=== PATIENT | female | born 1965 | race Two or more races ===

== ENCOUNTER 2019-01-12 09:05 | Day surgery (SDC) | payer OTHER ==
[2019-01-08 12:08] LABS: Basophils # (auto) 0.1 uL; Basophils % (auto) 0.8 % (0.0-2.0); Eosinophils # (auto) 0.1 uL; Eosinophils % (auto) 2.4 % (0.0-7.0); Hematocrit 41.6 % (36.0-46.0); Hemoglobin 14.6 g/dL (12.2-16.2); Lymphocytes # (auto) 1.9 uL; Lymphocytes % (auto) 30.4 % (10.0-50.0); Mean Corpuscular Hemoglobin 29.9 pg (28.0-32.0); Mean Corpuscular Volume 85.3 fL (80.0-100.0); Monocytes # (auto) 0.5 uL; Monocytes % (auto) 7.9 % (0.0-12.0); Neutrophils # (auto) 3.6 uL; Neutrophils % (auto) 58.5 % (37.0-80.0); Nucleated Red Blood Cells % 0.1 %; Platelet Count (auto) 221 10^3/uL (140-450); Red Blood Cells 4.88 10^6/uL (4.0-5.20); Red Cell Distribution Width 13.7 % (11.8-14.3); White Blood Cell 6.1 10^3/uL (4.4-10.8)
[2019-01-08 12:16] LABS: INR 1.02 (0.9-1.15); Partial Thromboplastin Time 27.2 sec (23.64-32.05)
[2019-01-08 12:24] LABS: Urine Bacteria NONE SEEN /hpf (None Seen); Urine Blood Negative /uL (Negative); Urine WBC 2 /hpf (0 - 5)
[~2019-01-12] VITALS: Ht 157.5 cm; Wt 81.2 kg
[~2019-01-12 09:05] MED LIST: HYDR-4441 PO; PIRO10CA PO; PRAV20TA3 PO
[2019-01-12] MEDS ORDERED: diphenhdrAMINE HCL 50 MG/1 ML VL ONE ×2 (11:37→11:43)
[2019-01-12] MEDS ORDERED: SODIUM CHLORIDE LOCK 10 ML ONE (11:37)
[2019-01-12] MEDS: MIDAZOLAM HCL 5 MG/ML-1ML VIAL ONE ×3 (12:21→12:27)
[2019-01-12] MEDS: fentaNYL CITRATE 100 MCG/2 ML VL ONE ×3 (12:21→12:27)
[2019-01-12 13:12] VITALS: BP 126/87
== END 2019-01-12 13:20 | disposition home or self-care (01) ==
LOC: GI 09:05
PROVIDERS: ATTEND Internal Medicine Gastroenterology
DX: Z12.11 Encounter for screening for malignant neoplasm of colon (principal); K57.30 Diverticulosis of large intestine without perforation or abscess without bleeding; F33.8 Other recurrent depressive disorders; E66.9 Obesity, unspecified; M06.9 Rheumatoid arthritis, unspecified; K58.9 Irritable bowel syndrome, unspecified; K21.9 Gastro-esophageal reflux disease without esophagitis; G43.909 Migraine, unspecified, not intractable, without status migrainosus; Z68.32 Body mass index [BMI] 32.0-32.9, adult; Z88.1 Allergy status to other antibiotic agents; Z79.899 Other long term (current) drug therapy; Z98.890 Other specified postprocedural states; Z83.3 Family history of diabetes mellitus; Z87.19 Personal history of other diseases of the digestive system
CPT/HCPCS: 36415; 45378; 81001; 85025; 85610; 85730; J1200; J2250; J3010; J7030; 99152